=== PATIENT | male | born 1990 | race Caucasian/White ===

== ENCOUNTER 2021-09-20 18:23 | Emergency (ER) | payer SELFPAY ==
[~2021-09-20] VITALS: Ht 188 cm; Wt 68.0 kg
== END 2021-09-20 19:49 | disposition home or self-care (01) ==
LOC: ER 18:26
DX: S00.261A Insect bite (nonvenomous) of right eyelid and periocular area, initial encounter (principal); F17.210 Nicotine dependence, cigarettes, uncomplicated
CPT/HCPCS: 99282